=== PATIENT | female | born 1995 | race Caucasian/White ===

== ENCOUNTER 2016-06-13 18:12 | Emergency (ER) | payer SELFPAY ==
[2016-06-13] MEDS ORDERED: NORMAL SALINE 1000 ML 1,000 ML IV PRN (18:33)
--- NOTE | 2016-06-13 18:34 | ER Document Report ---
ED Syncope and Near Syncope - General Stated Complaint: SYNCOPE Time Seen by Provider: 06/13/16 18:33 Mode of Arrival: Medic Information source: Patient TRAVEL OUTSIDE OF THE [place] IN LAST 30 DAYS: No - HPI Patient complains to provider of: Fainting Episode witnessed (by whom): Yes Multiple episodes (how many): 2 When did episodes begin: just prior to arrival Symptoms prior to episode: Lightheaded Position/Activity at time of episode: Sitting Quality of pain: No pain Context: Became unresponsive Duration of LOC (min): a few seconds Injury location: None Current symptoms: Nausea, Vomiting Similar symptoms previously: No Recently seen / treated by doctor: No Notes: Patient is a 21-year-old female with no past medical history who was brought to emergency room by EMS after having 2 syncopal episodes while donating plasma, she states each episode lasted just a few seconds, she reports feeling lightheaded with the episodes and is now having nausea and vomiting, she denies a history of similar symptoms previously, states she has donated plasma at least one time in the past and had no symptoms like this, she had no complaints prior to donating plasma, she does report that she is currently menstruating, she ate well today, drink plenty of fluids, denies a headache, no chest pain or shortness of breath, no vision changes, and reports feeling much better after vomiting - Related Data Allergies/Adverse Reactions: No Known Allergies Allergy (Unverified 07/06/14 21:14) Past Medical History - General Information source: Patient - Social History Smoking Status: Never Smoker Family History: Reviewed & Not Pertinent Review of Systems - Review of Systems Constitutional: No symptoms reported EENT: No symptoms reported Cardiovascular: Syncope, Lightheaded Respiratory: No symptoms reported Gastrointestinal: See HPI, Nausea, Vomiting Genitourinary: No symptoms reported Female Genitourinary: No symptoms reported Musculoskeletal: No symptoms reported Skin: No symptoms reported Hematologic/Lymphatic: No symptoms reported Neurological/Psychological: No symptoms reported -: Yes All other systems reviewed and negative Physical Exam - Vital signs Vitals: Temp Pulse Resp BP Pulse Ox 97.2 F 76 16 102/71 98 06/13/16 18:36 06/13/16 18:36 06/13/16 18:36 06/13/16 18:36 06/13/16 18:36 Interpretation: Normal - General General appearance: Appears well, Alert - HEENT Head: Normocephalic, Atraumatic Eyes: Normal Pupils: PERRL - Respiratory Respiratory status: No respiratory distress Chest status: Nontender Breath sounds: Normal Chest palpation: Normal - Cardiovascular Rhythm: Regular Heart sounds: Normal auscultation Murmur: No - Abdominal Inspection: Normal Distension: No distension Bowel sounds: Normal Tenderness: Nontender Organomegaly: No organomegaly - Back Back: Normal, Nontender - Extremities General upper extremity: Normal inspection, Nontender, Normal color, Normal ROM , Normal temperature General lower extremity: Normal inspection, Nontender, Normal color, Normal ROM , Normal temperature, Normal weight bearing. No: Adalgisa's sign - Neurological Neuro grossly intact: Yes Cognition: Normal Orientation: AAOx4 Tej Coma Scale Eye Opening: Spontaneous Tej Coma Scale Verbal: Oriented Tej Coma Scale Motor: Obeys Commands Tej Coma Scale Total: 15 Speech: Normal Motor strength normal: LUE, RUE, LLE, RLE Sensory: Normal - Psychological Associated symptoms: Normal affect, Normal mood - Skin Skin Temperature: Warm Skin Moisture: Dry Skin Color: Normal Course - Re-evaluation Re-evalutation: 06/13/16 19:59 Patient reports feeling much better, EKG was performed which shows no signs of acute ischemia, or other abnormalities, patient reports feeling much better, it is declining to have blood work performed at this point in time and would prefer to go home, patient's parents are at bedside, her father is in EMT, who reports he feels safe taking her home at this point in time, therefore patient signed a refusal of treatment form, I advised patient to go home and get some rest, drink any fluids, eat healthy well-balanced meals, return if symptoms worsen, patient and parents at bedside acknowledge understanding and agreement with this plan 06/13/16 20:00 Patient was able to ambulate in the emergency room without any additional symptoms - Vital Signs Vital signs: Temp Pulse Resp BP Pulse Ox 97.6 F 69 16 95/60 L 97 06/13/16 20:17 06/13/16 20:17 06/13/16 20:17 06/13/16 20:17 06/13/16 20:17 - EKG Interpretation by Me EKG shows normal: Sinus rhythm Rate: Normal Rhythm: NSR Discharge - Discharge Clinical Impression: Syncope Qualifiers: Syncope type: unspecified Qualified Code(s): R55 - Syncope and collapse Condition: Stable Disposition: HOME, SELF-CARE Instructions: Syncopal Episode ([facility]) Additional Instructions: Drink plenty fluids and eat a healthy well-balanced meals throughout the day. Follow-up with your primary care provider in one to 2 days. Return to the emergency room immediately if symptoms worsen or any additional concerns. Forms: Return to Work Referrals: DARRIUS BRYSON MD [Primary Care Provider] - Follow up as needed
[2016-06-13] MEDS ORDERED: METOCLOPRAMIDE HCL INJ/PF 10 MG/2 ML SDV IV ONE (18:36)
[2016-06-13 20:36] VITALS: BP 95/60
--- NOTE | 2016-06-14 05:40 | EKG REPORT ---
SEVERITY:- BORDERLINE ECG - SINUS RHYTHM PROBABLE LEFT ATRIAL ABNORMALITY BORDERLINE T ABNORMALITIES, ANTERIOR LEADS : Confirmed by: Sharlene Frankel MD 14-Jun-2016 05:39:44
== END 2016-06-13 20:25 | disposition home or self-care (01) ==
LOC: ER 18:12
DX: R55 Syncope and collapse (principal); R11.2 Nausea with vomiting, unspecified
CPT/HCPCS: 93005; 93010; 99284